=== PATIENT | male | born 1945 | race Caucasian/White ===

== ENCOUNTER 2016-10-13 16:49 | Inpatient (IN) ==
[2016-10-13] MEDS ORDERED: 0.9 % Sodium Chloride 1,000 ML IVC ONE (16:56)
--- NOTE | 2016-10-13 16:57 | Emergency Department Note ---
Disposition Clinical Impression: Atrial flutter with rapid ventricular response Disposition: Admitted As Inpatient Condition: Good Forms: ED Satisfaction Letter Arrhythmia/Palpitations HPI - General Chief Complaint: ED Arrhythmia/Palpitations Stated Complaint: "heart arythmia" from Time Seen by Provider: 10/13/16 16:56 Source: patient Limitations: no limitations Nursing Notes Reviewed: Yes Vital Signs Reviewed: Yes - History of Present Illness Pt Subjective Complaint: rapid heart beat, palpitations Onset (ago): week(s) (2) Duration: intermittent Severity: moderate Context: occurred during rest Associated symptoms: Reports: denies other symptoms - Related Data Home Medications Medication Instructions Recorded Confirmed Diclofenac Sodium 10/13/16 Pantoprazole 10/13/16 Plaquenuil 10/13/16 Testosterone 10/13/16 10/13/16 Allergies Allergy/AdvReac Type Severity Reaction Status Date / Time No Known Allergies Allergy Verified 10/13/16 16:50 All systems ED: reviewed and negative except as stated. Constitutional: Denies: fever, chills, weakness Respiratory: Reports: dyspnea Past Medical History - Past Medical History Source: patient, old records reviewed, nursing notes reviewed Medical history: Reports: arthritis, coronary artery disease, GERD Surgical history: Reports: non-contributory Psychiatric history: Reports: no psych history - Social History Smoking Status: Never smoker Smokeless Tobacco Status: No Alcohol use: Reports: occasionally Drug use: Reports: none Physical Exam - General Limitations: no limitations General appearance: alert, in no apparent distress - Head Head exam: atraumatic, normocephalic, normal inspection - Eye Eye exam: Present: normal appearance, PERRL, EOMI - Expanded Eye Exam Pupils: Left: reactive - ENT ENT exam: normal exam, normal oropharynx, mucous membranes moist - Expanded ENT Exam External ear exam: Present: normal external inspection Mouth exam: Present: normal external inspection Teeth exam: Present: normal inspection Throat exam: Present: normal inspection - Neck Neck exam: Present: normal inspection, full ROM, trachea midline - Chest Chest inspection: Present: normal inspection, symmetric chest wall rise - Respiratory Respiratory exam: Present: normal lung sounds bilaterally - Cardiovascular Cardiovascular exam: Present: tachycardia, irregular rhythm - Abdominal Exam Abdominal exam: Present: soft, Non-Tender. Absent: tenderness, distention, guarding, rebound, rigidity - Extremities Exam Extremities exam: Present: normal inspection, full ROM. Absent: tenderness, pedal edema - Expanded Upper Extremity Exam Shoulder exam: Present: normal inspection, full ROM Arm exam: Present: normal inspection, full ROM Elbow exam: Present: normal inspection, full ROM Forearm/Wrist exam: Present: normal inspection, full ROM Hand exam: Present: normal inspection, full ROM Vascular exam: Normal: capillary refill, radial pulse - Expanded Lower Extremity Exam Hip/Pelvis exam: Present: normal inspection, full ROM Upper leg exam: Present: normal inspection, full ROM Knee exam: Present: normal inspection, full ROM Lower leg exam: Present: normal inspection, full ROM Ankle exam: Present: normal inspection, full ROM Foot/toe exam: Present: normal inspection, full ROM Neurovascular/Tendon exam: Absent: motor deficit, sensory deficit, tendon deficit - Back Exam Back exam: Present: normal inspection, full ROM. Absent: tenderness - Neurological Exam Neurological exam: Present: alert, oriented X3 - Expanded Neurological Exam Patient oriented to: Present: person, place, time Coma Scale Eye Opening: Spontaneous Coma Scale Motor Response: Obeys Commands Coma Scale Verbal Response: Oriented Coma Scale Total: 15 - Psychiatric Psychiatric exam: Present: normal affect, normal mood - Skin Skin exam: Present: warm, dry, intact, normal color, rash (diffuse maculopapular rash) Course Vital Signs Temperature 98.7 F 10/13/16 16:50 Pulse Rate 149 10/13/16 16:50 Respiratory Rate 16 10/13/16 16:50 Blood Pressure 168/109 10/13/16 16:50 O2 Sat by Pulse Oximetry 97 10/13/16 16:50 Temperature 98.7 F 10/13/16 16:50 Pulse Rate 149 10/13/16 16:50 Respiratory Rate 16 10/13/16 16:50 Blood Pressure 168/109 10/13/16 16:50 O2 Sat by Pulse Oximetry 97 10/13/16 16:50 Oxygen Delivery Oxygen Delivery Room Air Arrhythmia/Palpitations - Differential Diagnosis Differential Diagnosis: Likely: palpitations, sinus tachycardia, artial arrhythmia, ventricular premature beats, supraventricular tachycardia, ventricular tachycardia, metabolic/electrolyte disturbance - Medical Records Medical records reviewed: Yes I reviewed the patient's medical records. - Lab Data Lab results reviewed: Yes I reviewed the patient's lab results. Result diagrams: 10/13/16 17:08 10/13/16 17:08 Lab Results 03/10/13/16 10/13/16 Range/Units 17:08 17:08 17:08 WBC 6.5 (4.3-11.1) K/mcL RBC 4.25 (4.19-5.50) M/mcL Hgb 14.0 (12.9-16.9) g/dL Hct 41.0 (37.5-50.1) % MCV 96.5 (83.0-100.0) fL MCH 32.9 (28.0-33.3) pg MCHC 34.1 (31.6-35.5) g/dL RDW 14.0 (11.5-14.5) % Plt Count 184 (140-400) K/mcL MPV 9.2 L (9.4-12.4) fL Immature Gran % 0.3 (0-4) % Seg Neutrophils % 76.6 % Lymphocytes % 8.7 % Monocytes % 7.0 % Eosinophils % 6.9 % Basophils % 0.5 % Neutrophils # 5.0 (1.6-8.9) K/mcL Lymphocytes # 0.6 (0.6-4.6) K/mcL Monocytes # 0.5 (0.0-1.3) K/mcL Eosinophils # 0.5 (0.0-0.6) K/mcL Basophils # 0.0 (0.0-0.2) K/mcL PT 12.3 H (9.4-12.1) Seconds INR 1.1 APTT 27.4 (26.0-36.0) Seconds Sodium 131 L (136-145) mEq/L Potassium 4.2 (3.5-4.5) mEq/L Chloride 96 L (98-109) mEq/L Carbon Dioxide 23 (19-29) mEq/L BUN 13 (8-26) mg/dL Creatinine 0.98 (0.72-1.25) mg/dL Est GFR ( Amer) > 60 (> 60) Est GFR (Non-Af Amer) > 60 (> 60) BUN/Creatinine Ratio 13 (6-26) Glucose 80 (70-99) mg/dL Calculated Osmolality 271 L (280-300) Calcium 9.2 (8.6-10.8) mg/dL Magnesium 1.9 (1.6-2.6) mg/dL Troponin I (0-0.03) ng/mL TSH 1.317 (0.350-4.840) mcIU/mL 10/13/16 Range/Units 17:08 WBC (4.3-11.1) K/mcL RBC (4.19-5.50) M/mcL Hgb (12.9-16.9) g/dL Hct (37.5-50.1) % MCV (83.0-100.0) fL MCH (28.0-33.3) pg MCHC (31.6-35.5) g/dL RDW (11.5-14.5) % Plt Count (140-400) K/mcL MPV (9.4-12.4) fL Immature Gran % (0-4) % Seg Neutrophils % % Lymphocytes % % Monocytes % % Eosinophils % % Basophils % % Neutrophils # (1.6-8.9) K/mcL Lymphocytes # (0.6-4.6) K/mcL Monocytes # (0.0-1.3) K/mcL Eosinophils # (0.0-0.6) K/mcL Basophils # (0.0-0.2) K/mcL PT (9.4-12.1) Seconds INR APTT (26.0-36.0) Seconds Sodium (136-145) mEq/L Potassium (3.5-4.5) mEq/L Chloride (98-109) mEq/L Carbon Dioxide (19-29) mEq/L BUN (8-26) mg/dL Creatinine (0.72-1.25) mg/dL Est GFR ( Amer) (> 60) Est GFR (Non-Af Amer) (> 60) BUN/Creatinine Ratio (6-26) Glucose (70-99) mg/dL Calculated Osmolality (280-300) Calcium (8.6-10.8) mg/dL Magnesium (1.6-2.6) mg/dL Troponin I 0.06 H* (0-0.03) ng/mL TSH (0.350-4.840) mcIU/mL - Radiology Data Radiology results reviewed: Yes I reviewed the patient's radiology results. - EKG Data EKG attestation: Yes I reviewed and interpreted this EKG. Rate: tachycardia (148) Rhythm: A. flutter [place]/QRS: RBBB Interpretation: nonspecific ST-T wave changes Critical Care Time Critical Care Time: Yes Total Critical Care Time: 35 Attestation: The high probability of a clinically significant, sudden or life threatening deterioration of the [] system(s) required my full and direct attention, intervention and personal management. The aggregate critical care time was [] minutes. This time is in addition to time spent performing reported procedures but includes the following: [] Data Review and interpretation [] Patient assessment and monitoring of vital signs [] Documentation [] Medication orders and management
[2016-10-13 17:21] LABS: Basophils % 0.5 %; Eosinophils # 0.5 K/mcL (0.0-0.6); Eosinophils % 6.9 %; Immature Granulocytes % 0.3 % (0-4); Lymphocytes # 0.6 K/mcL (0.6-4.6); Lymphocytes % 8.7 %; Mean Corpuscular HGB Conc 34.1 g/dL (31.6-35.5); Mean Corpuscular Hemoglobin 32.9 pg (28.0-33.3); Mean Corpuscular Volume 96.5 fL (83.0-100.0); Mean Platelet Volume 9.2 fL (9.4-12.4); Monocytes # 0.5 K/mcL (0.0-1.3); Platelet Count 184 K/mcL (140-400); Red Blood Count 4.25 M/mcL (4.19-5.50); Segmented Neutrophils % 76.6 %
[2016-10-13 17:27] LABS: INR 1.1; Prothrombin Time 12.3 Seconds (9.4-12.1)
[2016-10-13 17:29] LABS: Activated Partial Thrombo Time 27.4 Seconds (26.0-36.0)
[2016-10-13 17:33] LABS: BUN/Creatinine Ratio 13 (6-26); Blood Urea Nitrogen 13 mg/dL (8-26); Calcium 9.2 mg/dL (8.6-10.8); Carbon Dioxide 23 mEq/L (19-29); Chloride 96 mEq/L (98-109); Glucose 80 mg/dL (70-99); Magnesium 1.9 mg/dL (1.6-2.6); Osmolality,Calculated 271 (280-300); Potassium 4.2 mEq/L (3.5-4.5); Sodium 131 mEq/L (136-145); eGFR For African Americans > 60 (> 60); eGFR For Non-African Americans > 60 (> 60)
[2016-10-13 17:56] LABS: Thyroid Stimulating Hormone 1.317 mcIU/mL (0.350-4.840)
[2016-10-13] MEDS ORDERED: Aspirin 81 MG TAB.CHEW PO STA (18:12)
[2016-10-13] MEDS ORDERED: *HR* Enoxaparin 80 MG/0.8 ML SYRINGE SQ STA (18:13)
[2016-10-14] MEDS ORDERED: Ondansetron 4 MG/2 ML VIAL IVP PRN (00:53)
[2016-10-14] MEDS ORDERED: *HR* LORazepam 2 MG/ML VIAL IVP PRN ×3 (00:53)
[2016-10-14] MEDS ORDERED: Naloxone 0.4 MG/ML INJ IVP PRN (00:53)
--- NOTE | 2016-10-14 00:53 | Internal Med History&Physical ---
<Tony Islas - Last Filed: 10/14/16 01:07> Date of Encounter: 10/14/16 Time of Encounter: 23:15 Assessment and Plan (1) Atrial flutter with rapid ventricular response Current visit: Yes Status: Acute Patient presents for edema with elevated heart rate and EKG consistent with atrial flutter with rapid ventricular response. Patient is asymptomatic at this time, but continuing to need Cardizem drip to control heart rate. Magnesium, TSH, and potassium all normal Continue Cardizem drip titrated to heart rate between 60 and 90 Therapeutic Lovenox 1 mg/kg twice a day We will obtain additional EKG after improvement patient's heart rate We will obtain additional troponin We will consult cardiology for assistance and continue management/care of patient new-onset arrhythmia Continue to monitor arrhythmia via telemetry Cardiac diet (2) Rash Current visit: Yes Status: Acute Patient has diffuse, pruritic rash that is punctate erythematous lesions. Diffuse erythema appreciated. We will start 25 mg hydroxyzine every 6 hours for patient itching We will consult dermatology planning assistant in continued management/care the patient rash (3) Alcohol abuse Current visit: Yes Status: Acute Patient reports drinking 10-13 beers a day Patient started on Ativan base CIWA protocol We will obtain CMP also help evaluate liver function (4) DVT prophylaxis Current visit: Yes Status: Acute Patient was started on therapeutic Lovenox for new onset atrial arrhythmia Internal Medicine - H&P: HPI Chief complaint: Itchy Rash and high heart rate Admitted From: Home Plans for Post Hospital Care: Home History of present illness: Mr. Marcial is a 71 year old male with prior medical history of arthritis, coronary artery disease, GERD, spinal disc rupture, BPH, chronic pain presents to [facility] from a nearby urgent care due to findings of an elevated heart rate. He had originally presented to the urgent care because he was having significant pruritus associated with whole body rash that he has had for over a month now. It was originally isolated to his lower back, and he had been seen a shipping receiving manager, but after his last appointment shipping receiving manager in August the rash started over his whole body. At the urgent care his found having elevated heart rate in the be in atrial flutter with RVR and was sent to [facility] for further workup and management. EKG showed atrial flutter with ventricular rate of 1:30. He was started on a Cardizem drip in the emergency room anesthesia achieved moderate control of his arrhythmia, pain in the mid 90s on 7.5 mg an hour. When spoken to, the patient complains mainly of these ongoing pruritic rash, but does state these had increased nausea and lightheadedness in the past 2-3 months, he is not having a little shortness of breath, palpitations, and a dry cough for about a month. He denies chest pain, denies vomiting, denies abdominal pain, denies lightheadedness or dizziness, denies syncope. He states he is felt like the palpitations have been occurring off and on for years. Past Med Surg Social Fam HX - Past Medical History Medical history: arthritis, GERD, hyperlipidemia Psychiatric history: no psych history - Past Surgical History Surgical History: non-contributory - Social History Smoking Status: Never smoker Smokeless Tobacco Status: No Alcohol use: occasionally Drug use: none - Family History Brother Hx Family Cardiac Disorders: Yes (pacemaker) Internal Medicine - H&P: Meds Cholecalciferol (D-3) [Vitamin D] 1,000 unit PO DAILY 10/13/16 [History] Diclofenac Sodium 50 mg PO BID 10/13/16 [History] Lutein 10 mg PO DAILY 10/13/16 [History] Pantoprazole 100 mg PO DAILY 10/13/16 [History] Plaquenuil 200 mg PO BID 10/13/16 [History] Testosterone 0.6 mg SQ Q2W 10/13/16 [History] Viagra 10/13/16 [History] Allergies No Known Allergies Allergy (Verified 10/13/16 16:50) - Constitutional Constitutional: no anorexia, no chills, no fatigue, no falls, no weakness - EENT Eyes: no change in vision, no loss of vision Nose, mouth and throat: no dysphagia, no nasal discharge, no neck pain, no sore throat - Cardiovascular Cardiovascular ROS IM: as per HPI, dyspnea, edema, palpitations, no chest pain, no diaphoresis, no lightheadedness, no syncope - Respiratory Respiratory: as per HPI, cough, dyspnea, chest congestion, no hemoptysis, no wheezing, no excessive phlegm production, no change in phlegm color - Gastrointestinal Gastrointestinal: nausea, no abdominal pain, no diarrhea, no hematemesis, no hematochezia, no melena, no vomiting - Genitourinary Genitourinary ROS male: no dysuria, no hematuria - Musculoskeletal Musculoskeletal ROS IM: back pain, no numbness, no tingling - Integumentary Integumentary IM: as per HPI, erythema, pruritus, rash, no unusual bruising, no jaundice - Neurological Neurological ROS: no confusion, no dizziness, no focal weakness, no loss of vision, no numbness, no tingling, no tremor(s), no weakness - Hematologic/Lymphatic Hematologic/Lymphatic: no easy bruising - Constitutional Vitals: Temp Pulse Resp BP Pulse Ox 97.9 F 91 16 123/70 94 L 10/13/16 22:30 10/13/16 22:30 10/13/16 22:30 10/13/16 22:30 10/13/16 22:30 Exam: General: Cooperative, pleasant, no acute distress, alert and oriented 3, answers questions appropriately Head: Normocephalic, atraumatic Eye: Conjunctiva pink, sclera anicteric, EOMI, PERRL Neck: Supple, trachea midline, mucosa moist, no oral lesions appreciated Respiratory: No accessory muscle usage, clear to auscultation bilaterally, no wheezes/rhonchi/rales appreciated Cardiovascular: Irregular rhythm, S1 and S2 present, no murmurs/rubs/gallops/ clicks appreciated GI/abdominal: Nondistended, nontender, soft, normal bowel sounds, no peritoneal signs Extremities: No calf tenderness, noncyanotic, +1 pedal edema appreciated, warm, lower extremity pulses palpable and symmetrical Neurological: Alert and oriented 3, no facial droop, no focal deficits Skin: Dry, intact, erythematous diffusely, many punctate areas of erythema with evidence of excoriations in upper extremities, lower extremities, abdomen, and chest Internal Med - H&P Results - Labs CBC & Chem 7: 10/13/16 17:08 10/13/16 17:08 - EKG Data -: EKG Interpreted by Myself Rate: tachycardia - EKG Data Prior EKG available for review: no - Impressions Atrial flutter with variable ventricular response Right bundle branch block <Thelma Sanchez - Last Filed: 10/14/16 10:37> Date of Encounter: 10/13/16 Internal Medicine - H&P: HPI History of present illness: Mr. Marcial is a 71 year old male All Systems PM: A 10-system review of systems was performed and is negative for pertinent findings except as documented above in the HPI. - Constitutional Vitals: Temp Pulse Resp BP Pulse Ox 97.8 F 76 18 121/67 92 L 10/14/16 07:41 10/14/16 07:41 10/14/16 07:41 10/14/16 07:41 10/14/16 07:41 Internal Med - H&P Results - Labs CBC & Chem 7: 10/14/16 03:11 10/14/16 03:11 - Attending Attestation I performed a history and physical examination of the patient and discussed his management with the Resident/Product Strategy Director. I reviewed the residents note and agree with the documented findings and plan of care, with additions as below. 71 Y/M with skin rash presented to urgent care and was noted to be tachycardic and sent to the ER. Noted to be atrial flutter with RVR. He is started on diltiazem infusion with improving heart rate. At my evaluation patient denied any chest pain or palpitations. He was itchy due to skin rash. O/E: Cardiac irregular rhythm; extensive skin rash with excoriations. Difficult to differentiate the primary rash. EKG personally evaluated by me shows A flutter with RVR. TSH is normal. A/P: Continue diltiazem infusion; echocardiogram; cardiac consultation. Start hydroxyzine for itching. Dermatology consultation.
[2016-10-14] MEDS: Vitamin B Complex/Vit C/Vit E 1 EACH TABLET PO SCH (01:30)
[2016-10-14] MEDS: Folic Acid 1 MG TABLET PO SCH ×2 (01:31→09:30)
[2016-10-14] MEDS: Thiamine (B-1) 100 MG TABLET PO SCH (01:31)
[2016-10-14] MEDS: hydrOXYzine pamoate 25 MG CAPSULE PO PRN ×4 (01:36→17:53)
[2016-10-14 03:19] LABS: Basophils % 0.4 %; Eosinophils # 0.6 K/mcL (0.0-0.6); Eosinophils % 11.8 %; Hematocrit 37.2 % (37.5-50.1); Hemoglobin 12.7 g/dL (12.9-16.9); Immature Granulocytes % 0.2 % (0-4); Lymphocytes # 0.8 K/mcL (0.6-4.6); Lymphocytes % 16.3 %; Mean Corpuscular HGB Conc 34.1 g/dL (31.6-35.5); Mean Corpuscular Volume 96.6 fL (83.0-100.0); Mean Platelet Volume 9.3 fL (9.4-12.4); Monocytes # 0.3 K/mcL (0.0-1.3); Monocytes % 7.1 %; Platelet Count 175 K/mcL (140-400); Red Blood Count 3.85 M/mcL (4.19-5.50); Segmented Neutrophils % 64.2 %
[2016-10-14 03:34] LABS: Alanine Aminotransferase 25 Units/L (0-55); Albumin 3.3 g/dL (3.5-5.0); Albumin/Globulin Ratio 1.4 (1.1-2.2); Alkaline Phosphatase 34 Units/L (38-126); Aspartate Amino Transferase 36 Units/L (5-34); BUN/Creatinine Ratio 13 (6-26); Bilirubin,Total 0.7 mg/dL (0.2-1.2); Blood Urea Nitrogen 11 mg/dL (8-26); Calcium 8.6 mg/dL (8.6-10.8); Carbon Dioxide 22 mEq/L (19-29); Chloride 101 mEq/L (98-109); Globulin 2.4 g/dL (2.4-3.5); Glucose 89 mg/dL (70-99); Magnesium 1.7 mg/dL (1.6-2.6); Osmolality,Calculated 275 (280-300); Phosphorous 3.7 mg/dL (2.3-4.7); Potassium 4.3 mEq/L (3.5-4.5); Sodium 133 mEq/L (136-145); Total Protein 5.7 g/dL (6.0-8.3); eGFR For African Americans > 60 (> 60); eGFR For Non-African Americans > 60 (> 60)
[2016-10-14] MEDS: *HR* Enoxaparin 80 MG/0.8 ML SYRINGE SQ SCH ×2 (05:49→17:51)
[2016-10-14] MEDS: Pantoprazole 40 MG VIAL IVP SCH (05:49)
[2016-10-14] MEDS: Diltiazem CD (24hr) 180 MG CAPSULE PO SCH (09:30)
--- NOTE | 2016-10-14 10:30 | Cardiology Consult Note ---
Date of Encounter: 10/14/16 Time of Encounter: 10:28 Assessment and Plan (1) Atrial flutter with rapid ventricular response Current Visit: Yes Status: Acute New diagnosis. Reports ongoing palpitations over the past month, intermittently for years. A-Flutter with RVR on presentation. Admits to dyspnea and lower extremity edema. Rate controlled on IV Cardizem gtt at 7.5mg/hr--transition to PO Cardizem CD 180mg daily. K 4.3, Mag 1.7, TSH 1.317. CHADSVASC at least 1 for age, possibly a 2 or 3 due to reported white coat HTN and being on Plaquenuil for possible vascular disease. Recommend anticoagulation. Discussed Coumadin vs. NOACs. Pt prefers Coumadin--[facility] pt, so will [facility] up with [facility]. Start Coumadin tonight with dosing per pharmacy. On Therapeutic Lovenox. Check echo to evaluate structure and function. Drinks 12-13 beers/day. Discussed cessation. Discussed MEHRDAD/DCCV to attempt to get pt out of A-Flutter and back in SR. R/B/A discussed and pt agrees. Proceed with MEHRDAD/DCCV tomorrow AM. If unsuccessful, can be anticoagulated for 4 weeks and set up for outpt A-Flutter ablation. (2) Alcohol abuse Current Visit: Yes Status: Acute Patient reports drinking 10-13 beers a day. Cessation counseling given. Hospitalist started pt on Ativan base CIWA protocol. (3) Elevated troponin Current Visit: Yes Status: Acute 0.06, 0.07 in setting of A-Flutter with RVR--likely demand ischemia, nondiagnostic for ACS. Pt denies chest pain. No hx of CAD. Echo to evaluate structure and function. Discussion w patient/family: The assessment and plan as outlined above was discussed with the patient and/or family members who expressed understanding and agreement. All questions were answered. Thank you for involving us in the care of your patient. Please call with any questions. I will discuss all the above with Dr. Sidhu and make changes as necessary. History of Present Illness Consult date: 10/14/16 Requesting physician: Tony Islas Consult reason: A-Flutter Chief complaint: rash History of present illness: Mr. Marcial is a 71 year old male with PMH of arthritis, GERD, spinal disc rupture , BPH, chronic pain presents to [facility] from a nearby urgent care due to findings of an elevated heart rate. He had originally presented to the urgent care because he was having significant pruritus associated with whole body rash that he has had for over a month now. It was originally isolated to his lower back, and he had been seen a justice of the peace, but after his last appointment justice of the peace in August the rash started over his whole body. At the urgent care he was found to be in atrial flutter with RVR and was sent to [facility] for further workup and management. EKG showed atrial flutter, rate 140s. He was started on a Cardizem drip in the ED--rate currently controlled on cardizem gtt 7.5mg/hr. Pt reports intermittent palpitations for years but reports current episode of palpitations ongoing for one month with lower extremity edema and dyspnea ongoing for longer. He denies chest pain, denies any known hx of CAD or LHC. Admits to drinking 10-13 beers/day. Troponins 0.06, 0.07. Past Med Surg Social Fam HX - Past Medical History Medical history: arthritis, GERD, hyperlipidemia Psychiatric history: no psych history - Past Surgical History Surgical History: non-contributory - Social History Smoking Status: Never smoker Smokeless Tobacco Status: No Alcohol use: occasionally Drug use: none - Family History Brother Hx Family Cardiac Disorders: Yes (pacemaker) Medications and Allergies Cholecalciferol (D-3) [Vitamin D] 1,000 unit PO DAILY 10/13/16 [History] Diclofenac Sodium 50 mg PO BID 10/13/16 [History] Lutein 10 mg PO DAILY 10/13/16 [History] Pantoprazole 100 mg PO DAILY 10/13/16 [History] Plaquenuil 200 mg PO BID 10/13/16 [History] Testosterone 0.6 mg SQ Q2W 10/13/16 [History] Viagra 10/13/16 [History] Allergies No Known Allergies Allergy (Verified 10/13/16 16:50) All Systems Review: A 10-system review of systems was performed and is negative for pertinent findings except as documented above in the HPI. - Cardiovascular Cardiovascular: as per HPI, dyspnea at rest, dyspnea on exertion, leg edema, palpitations - Respiratory Respiratory: cough, dyspnea - Integumentary Integumentary: rash Physical Examination Vital Signs, Last 4 Hours Temp Pulse Resp BP Pulse Ox 10/14/16 07:41 97.8 F 76 18 121/67 92 L Vital Signs Temp Pulse Resp BP Pulse Ox 10/14/16 07:41 97.8 F 76 18 121/67 92 L 10/14/16 03:29 97.8 F 93 16 120/71 94 L 10/13/16 22:30 97.9 F 91 16 123/70 94 L 10/13/16 22:10 130 108/67 10/13/16 20:10 97.8 F 127 16 134/79 92 L 10/13/16 19:49 98.6 F 18 116/82 10/13/16 19:37 123 18 115/80 98 10/13/16 18:30 98 16 126/75 97 10/13/16 18:00 77 16 126/75 97 10/13/16 17:30 93 16 133/81 98 10/13/16 16:50 98.7 F 149 16 168/109 97 Intake and Output 10/13/16 10/14/16 10/14/16 23:59 07:59 15:59 Intake Total 480 / 480 Balance 480 / 480 Intake: Oral 480 / 480 Other: Meal Breakfast Percent of Meal Consumed 100% Weight 83.96 kg 83.642 kg Patient Weight 10/14/16 23:59 Weight 83.642 kg General: Conversant, No Apparent Distress HEENT: Atraumatic, Normocephaly, Mucus Membranes Moist Neck: No JVD, Normal carotid pulses Cardiac: Other (irregular) Lungs: Normal Breath Sounds, No Wheeze, Rales, Rhonchi Neuro: Alert and responsive, No focal deficits noted Abdomen: Soft, Non-Tender Skin: No rashes noted on visualized skin Musculoskeletal: No Chest Wall Tenderness Extremities: Other (mild BLE edema) Results 10/14/16 03:11 10/14/16 03:11 Short CBC 10/14/16 10/13/16 Range/Units 03:11 17:08 WBC 4.7 6.5 (4.3-11.1) K/mcL Hgb 12.7 L 14.0 (12.9-16.9) g/dL Hct 37.2 L 41.0 (37.5-50.1) % Plt Count 175 184 (140-400) K/mcL Neutrophils # 3.0 5.0 (1.6-8.9) K/mcL BMP 10/14/16 10/13/16 Range/Units 03:11 17:08 Sodium 133 L 131 L (136-145) mEq/L Potassium 4.3 4.2 (3.5-4.5) mEq/L Chloride 101 96 L (98-109) mEq/L Carbon Dioxide 22 23 (19-29) mEq/L BUN 11 13 (8-26) mg/dL Creatinine 0.88 0.98 (0.72-1.25) mg/dL Glucose 89 80 (70-99) mg/dL Calcium 8.6 9.2 (8.6-10.8) mg/dL Cardiac Enzymes 10/14/16 10/13/16 Range/Units 03:11 17:08 Troponin I 0.07 H* 0.06 H* (0-0.03) ng/mL Liver Function 10/14/16 Range/Units 03:11 Total Bilirubin 0.7 (0.2-1.2) mg/dL AST 36 H (5-34) Units/L ALT 25 (0-55) Units/L Alkaline Phosphatase 34 L (38-126) Units/L Albumin 3.3 L (3.5-5.0) g/dL Impressions Chest X-Ray 10/13/16 16:56 IMPRESSION: No acute cardiopulmonary disease. D/ / Ryan Silva MD / Ryan Silva MD Interpreting Provider: Ryan Silva MD Active Medications Diclofenac Sodium (Voltaren) 50 mg PO BID [facility] Stop: 04/15/17 01:16 Last Admin: 10/14/16 09:30 Dose: 50 mg Diltiazem HCl (Cardizem Cd) 180 mg PO DAILY [facility] Stop: 04/15/17 09:01 Last Admin: 10/14/16 09:30 Dose: 180 mg Enoxaparin Sodium (Lovenox) 80 mg 1 mg/kg (80 mg) SQ Q12HCO [facility] PRN Reason: Protocol Stop: 04/15/17 06:01 Last Admin: 10/14/16 05:49 Dose: Not Given Folic Acid (Folic Acid) 1 mg PO DAILY [facility] Stop: 04/15/17 01:01 Last Admin: 10/14/16 09:30 Dose: 1 mg Hydroxychloroquine Sulfate (Plaquenuil) 200 mg PO BID [facility] Stop: 04/15/17 01:16 Last Admin: 10/14/16 09:30 Dose: 200 mg Hydroxyzine Pamoate (Hydroxyzine Pamoate) 25 mg PO QID PRN PRN Reason: Itching Stop: 04/15/17 01:05 Last Admin: 10/14/16 05:51 Dose: 25 mg Lorazepam (Ativan) 1 mg IVP Q1H PRN PRN Reason: Alcohol Withdrawal Stop: 04/15/17 00:54 Lorazepam (Ativan) 2 mg IVP Q4HR PRN PRN Reason: CIWA Score of 10-21 Stop: 04/15/17 00:54 Lorazepam (Ativan) 4 mg IVP Q4HR PRN PRN Reason: CIWA Score of 22-45 Stop: 04/15/17 00:54 Naloxone HCl (Narcan) 0.4 mg IVP Q2MIN PRN PRN Reason: Opioid Reversal Stop: 04/15/17 00:54 Ondansetron HCl (Zofran) 4 mg IVP Q8HR PRN PRN Reason: Nausea And Vomiting Stop: 04/15/17 00:54 Pantoprazole Sodium (Protonix) 40 mg IVP 0630 [facility] Stop: 04/15/17 06:31 Last Admin: 10/14/16 05:49 Dose: 40 mg Thiamine HCl (Vitamin B-1) 100 mg PO DAILY [facility] Stop: 04/15/17 01:01 Last Admin: 10/14/16 01:31 Dose: 100 mg Vitamin B Complex/Vit C/Vit E (Stresstab) 1 each PO DAILY [facility] Stop: 04/15/17 01:01 Last Admin: 10/14/16 01:30 Dose: 1 each - Imaging and Cardiology Echo: pending - EKG Interpretation EKG results cardiology: personally reviewed (A-Flutter with RVR.), other (24 hour tele AVG HR 89, A-Flutter) Consult Discharge Plan - Plan Referrals: Simeon Zambrano MD [Primary Care Provider] -
--- NOTE | 2016-10-14 15:10 | ECHO - Doppler Report ---
Echocardiogram Name: Blaze Marcial Date of Study: 10/14/2016 Date: 1945 Ht: 68.0 in Medical Record#: [id number] Age: 71 Wt: 184.0 lb Gender: Male BSA: 1.97 Order #: [id number] Location: [facility] Room #: 3B53 Reading Physician: Louie Sidhu MD, [facility] Printer Assistant: Mary Patterson RVT Ordering Physician: Tony Islas DO Primary Physician: Simeon Zambrano MD Indications: new onset atrial flutter Impressions: Normal LV systolic function, LVEF 55%. Indeterminate diastolic function due to atrial flutter. Normal right ventricular size and function. Moderately dilated left atrium. Mildly dilated right atrium. Mild tricuspid regurgitation. Mild pulmonary hypertension. Estimated RVSP = 37 mmHg. Borderline dilated aortic root, measuring 4.0 cm at the sinuses of Valsalva. Left Ventricular Wall Motion: Rest Echo Findings All wall segments showed normal motion. Findings: Study Quality * Suboptimal echo windows. ECG Findings * Atrial flutter. Left Ventricle * Normal LV systolic function, LVEF 55%. * Normal LV chamber size and wall thickness. * Indeterminate diastolic function due to atrial flutter. Right Ventricle * Normal right ventricular size and function. Left Atrium * Moderately dilated left atrium. Right Atrium * Mildly dilated right atrium. Aorta * Borderline dilated aortic root, measuring 4.0 cm at the sinuses of Valsalva. Pericardium * There is no pericardial effusion present. IVC * The IVC is dilated. Aortic Valve * Trileaflet aortic valve. * Mildly sclerotic aortic valve leaflets. * No aortic stenosis. * No aortic regurgitation. Mitral Valve * Mild mitral annular calcification * No mitral stenosis. * Trace mitral regurgitation. Tricuspid Valve * Tricuspid valve not well visualized. * No tricuspid stenosis. * Mild tricuspid regurgitation. * Mild pulmonary hypertension. Estimated RVSP = 37 mmHg. Pulmonic Valve * Pulmonic valve not well visualized. * No pulmonic stenosis. * No pulmonic regurgitation. History Family History of CAD Measurements: BP: 120/ 71 2D Normal Values RVIDd: 3.22 cm IVSd: .96 cm 0.6 - 1.0 cm LVIDd: 5.18 cm 3.7 - 5.6 cm LVPWd: .92 cm 0.6 - 1.1 cm LVIDs: 3.51 cm 1.5 - 3.6 cm AO: 4.00 cm < 4.0 cm %FS: 32.20 cm >25 % LA volume: 78 Tricuspid Valve TV Regurg Peak Grad: 29.00mmHg TV Regurg Peak Edy: 2.70m/sec Updated by Louie Sidhu MD, [facility] on 10/14/2016 3:03:56 PM electronically signed on 10/14/2016 3:04:34 PM with status of Final Wall Motion Wells: 1=Normal, 2=Hypokinesis, 3=Akinesis, 4=Dyskinesis, 5=Aneurysmal, 6=Hyperkinetic, X=Not Visualized (Blank)=Missing
[2016-10-14] MEDS ORDERED: Warfarin perPT PO PRN (18:00)
[2016-10-14] MEDS ORDERED: *HR* Warfarin 2.5 MG TABLET PO SCH (18:00)
[2016-10-15 05:03] LABS: Basophils % 0.5 %; Eosinophils # 0.5 K/mcL (0.0-0.6); Eosinophils % 11.6 %; Hematocrit 36.5 % (37.5-50.1); Hemoglobin 12.5 g/dL (12.9-16.9); Immature Granulocytes % 0.2 % (0-4); Lymphocytes # 0.7 K/mcL (0.6-4.6); Lymphocytes % 16.7 %; Mean Corpuscular HGB Conc 34.2 g/dL (31.6-35.5); Mean Corpuscular Hemoglobin 33.8 pg (28.0-33.3); Mean Corpuscular Volume 98.6 fL (83.0-100.0); Mean Platelet Volume 9.9 fL (9.4-12.4); Monocytes # 0.3 K/mcL (0.0-1.3); Monocytes % 6.3 %; Neutrophils # 2.8 K/mcL (1.6-8.9); Platelet Count 166 K/mcL (140-400); Red Cell Distribution Width 14.3 % (11.5-14.5); Segmented Neutrophils % 64.7 %
[2016-10-15 05:13] LABS: INR 1.2; Prothrombin Time 12.6 Seconds (9.4-12.1)
[2016-10-15 05:24] LABS: BUN/Creatinine Ratio 16 (6-26); Blood Urea Nitrogen 14 mg/dL (8-26); Carbon Dioxide 24 mEq/L (19-29); Chloride 103 mEq/L (98-109); Potassium 4.1 mEq/L (3.5-4.5); Sodium 135 mEq/L (136-145)
[2016-10-15 05:25] LABS: Calcium 8.4 mg/dL (8.6-10.8); Glucose 107 mg/dL (70-99); Osmolality,Calculated 281 (280-300); eGFR For African Americans > 60 (> 60); eGFR For Non-African Americans > 60 (> 60)
[2016-10-15] MEDS: hydrOXYzine pamoate 25 MG CAPSULE PO PRN ×3 (06:15→21:15)
[2016-10-15] MEDS: *HR* Enoxaparin 80 MG/0.8 ML SYRINGE SQ SCH ×2 (06:15→18:00)
[2016-10-15] MEDS: Pantoprazole 40 MG VIAL IVP SCH (06:15)
--- NOTE | 2016-10-15 06:42 | Electrocardiograph Report ---
[address] [address] Test Date: 2016-10-13 Pat Name: Blaze Marcial Department: 104 Room: 3B Gender: Campus Coordinator: MIO : 1945 Requested By: Marco Antonio Retana Order Number: [id number] Reading MD: Louie Sidhu MD Measurements Intervals [place] Rate: 106 P: [place]: 0 QRS: 53 QRSD: 173 T: 40 QT: 354 QTc: 416 Interpretive Statements ATRIAL FLUTTER/TACHYCARDIA WITH RAPID VENTRICULAR RESPONSE RIGHT BUNDLE BRANCH BLOCK NONSPECIFIC ST \T\ T WAVE ABNORMALITY Electronically Signed On 10-15-2016 6:41:08 EDT by Louie Sidhu MD
--- NOTE | 2016-10-15 07:00 | Electrocardiograph Report ---
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
--- NOTE | 2016-10-15 07:05 | Electrocardiograph Report ---
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
--- NOTE | 2016-10-15 07:18 | Electrocardiograph Report ---
[employer] [facility] Test Date: 2016-10-13 Pat Name: Blaze Marcial Department: 3501 Room: 3B53 Gender: M Business Consult: TS : 1945 Requested By: Marco Antonio Retana Order Number: [id number] Reading MD: Lexy Sol DO Measurements Intervals [place] Rate: 148 P: [place]: 0 QRS: 259 QRSD: 150 T: -7 QT: 282 QTc: 367 Interpretive Statements ATRIAL FLUTTER/TACHYCARDIA WITH RAPID VENTRICULAR RESPONSE INDETERMINATE AXIS RIGHT BUNDLE BRANCH BLOCK Electronically Signed On 10-15-2016 7:17:00 EDT by Lexy Slo DO
[2016-10-15] MEDS: Thiamine (B-1) 100 MG TABLET PO SCH (09:37)
[2016-10-15] MEDS: Vitamin B Complex/Vit C/Vit E 1 EACH TABLET PO SCH (09:37)
[2016-10-15] MEDS: Diltiazem CD (24hr) 180 MG CAPSULE PO SCH (09:37)
[2016-10-15] MEDS: Folic Acid 1 MG TABLET PO SCH (09:37)
[2016-10-15] MEDS ORDERED: 0.9 % Sodium Chloride 500 ML IVC ONE ×2 (12:59→14:33)
[2016-10-15] MEDS ORDERED: Tetracaine/Benzocaine/Butamben 200MG/SPRAY (100SPY/BOT) MM ONE (12:59)
[2016-10-15] MEDS: *HR* FentaNYL (PF) 100 MCG/2 ML VIAL IVP PRN ×2 (14:05→14:10)
[2016-10-15] MEDS: *HR* Midazolam HCl 5 MG/5 ML VIAL IVP PRN ×2 (14:05→14:10)
--- NOTE | 2016-10-15 15:03 | Event Note ---
Date of Encounter: 10/15/16 Time of Encounter: 15:01 - Cardiology Event Note Plan was for MEHRDAD/DCCV today. MEHRDAD completed---there was an echodensity at the apex of appendage. Could not rule out thrombus. Due to this, DCCV was not completed. Pt remains in A-Flutter, rate controlled on PO Cardizem. Continue Coumadin for anticoagulation--needs bridging for possible left atrial thrombus. Continue therapeutic Lovenox. Can be discharged with therapeutic Lovenox and Coumadin. [facility]Cass[facility] Jacinto, who states they will try to get him in for INR check within the week. She recommends dose of 2.5mg of Coumadin daily at discharge. Will coordinate outpt follow-up with Dr. Venkatesh Alas in 3-4 weeks. Will also need repeat outpt MEHRDAD. Echo EF 55%. Cardiology signing off. Reconsult PRN.
[2016-10-15] MEDS ORDERED: *HR* Warfarin 5 MG TABLET PO ONE (18:00)
--- NOTE | 2016-10-15 18:10 | Internal Med Progress Note ---
Date of Encounter: 10/15/16 Time of Encounter: 22:04 - Assessment and plan (1) Atrial flutter with rapid ventricular response Current Visit: Yes Status: Acute (2) DVT prophylaxis Current Visit: Yes Status: Acute (3) Alcohol abuse Current Visit: Yes Status: Acute (4) Rash Current Visit: Yes Status: Acute (5) Elevated troponin Current Visit: Yes Status: Acute Assessment and plan: 71 year old male with prior medical history of arthritis, coronary artery disease, GERD, spinal disc rupture, BPH, chronic pain admitted to thospital with palpitaton, daignosed to be in Afib with RVR Afib with RVR: currently rate controlled. MEHRDAD today concerning for atrial appendage thrombus. On anticoagulation with coumadin. Bridging with Lovenox. Rash: Multiple rash on body with excoriation amrks all over. No mucosal lesions. On hydroxyzine for itching and sterodi topical cream Alcohol abuse: On CIWA protocol DVT Prophylaxis: On Lovenox and coumadin - Time Spent With Patient 25 - 35 minutes - Subjective Interval history: seen and examined at bedside. Continues to have itching, better with benadryl. Plan for MEHRDAD with cardioversion today. - Constitutional Vitals: Temp Pulse Resp BP Pulse Ox 97.6 F 96 16 157/83 99 10/15/16 15:34 10/15/16 15:34 10/15/16 15:34 10/15/16 15:34 10/15/16 15:34 - Head Head exam: Present: atraumatic, normocephalic - Eye Eye exam: Present: PERRL, conjuntiva pink, sclera anicteric Pupils: Present: PERRL - Neck Neck exam general surgery: Present: supple, trachea midline. Absent: lymphadenopathy - Respiratory Respiratory exam: Present: CTAB. Absent: accessory muscle use, rales, rhonchi, wheezes - Cardiovascular Cardiovascular exam: Present: RRR, +S1, +S2. Absent: diastolic murmur, gallop, rubs, systolic murmur - GI/Abdominal GI/Abdominal exam: Present: normal bowel sounds, soft, no peritoneal signs. Absent: distended, tenderness - Extremities Exam Extremities exam: Present: warm, radial pulses palpable and symetrical. Absent : calf tenderness, cyanotic, pedal edema - Neurological Exam Neurological exam: Present: CN II-XII intact, oriented X3, no focal deficits. Absent: pronater drift, facial droop, speech deficit - Skin Skin exam: Present: dry, intact, rash (excoriated gibbs all over the body ) Internal Medicine: Result - Labs CBC & Chem 7: 10/15/16 04:19 10/15/16 04:19 Labs: Short CBC 10/15/16 Range/Units 04:19 WBC 4.3 (4.3-11.1) K/mcL Hgb 12.5 L (12.9-16.9) g/dL Hct 36.5 L (37.5-50.1) % Plt Count 166 (140-400) K/mcL Neutrophils # 2.8 (1.6-8.9) K/mcL BMP 10/15/16 04:19 Sodium 135 L Potassium 4.1 Chloride 103 Carbon Dioxide 24 BUN 14 Creatinine 0.86 Glucose 107 H Calcium 8.4 L - ABG Interpretation ABG results: PT/INR, D-dimer PT 12.6 Seconds (9.4-12.1) H 10/15/16 04:19 Consult Discharge Plan - Plan Referrals: Simeon Zambrano MD [Primary Care Provider] - 10/22/16 1:00 pm
--- NOTE | 2016-10-15 18:13 | ECHO - Doppler Report ---
Transesophageal Echocardiogram Name: Blaze Marcial Date of Study: 10/15/2016 Date: 1945 Ht: 68.0in Medical Record#: [id number] Age: 71 Wt: 189.0lb Gender: Male BSA: 2 Order #: [id number] Location: [facility] Room #: [facility] Reading Physician: Daphne Saldivar DO Insole Rounder: Cassandra Allen RDCS, RVT Ordering Physician: Horacio Cline CNP Primary Physician: Simeon Zambrano MD Indications: Arrhythmia Impressions: Technically challenging with suboptimal windows. There is a small echodensity visualized in the ELODIA that may represent thrombus. DCCV was not performed. Medication Given: Time Medication Dose Units Route 14:05 Versed 2 mg IV 14:05 Fentanyl 25 mcg IV 14:10 Versed 1 mg IV 14:10 Fentanyl 25 mcg IV Findings: Study Quality * Technically sub-optimal due to poor window. ECG Findings * Atrial fibrillation. Left Atrium * No thrombus present. * The LA appendage is not well visualized but there is a small echodensity that may represent thrombus. Color flow Doppler was suboptimal. * Normal velocities of the ELODIA. Complications: Arrhythmia History: Hypercholesteremia Years 36 Packs 3.5 Family History of CAD Previous Echo10/14/2016 BP 144 / 77 Updated by Daphne Saldivar on 10/15/2016 6:06:07 PM electronically signed on 10/15/2016 6:08:43 PM with status of Final Wall Motion Wells: 1=Normal, 2=Hypokinesis, 3=Akinesis, 4=Dyskinesis, 5=Aneurysmal, 6=Hyperkinetic, X=Not Visualized (Blank)=Missing
[2016-10-16] MEDS: hydrOXYzine pamoate 25 MG CAPSULE PO PRN ×2 (04:08→08:53)
[2016-10-16 04:51] LABS: Basophils % 0.4 %; Eosinophils # 0.7 K/mcL (0.0-0.6); Eosinophils % 13.9 %; Hematocrit 39.7 % (37.5-50.1); Hemoglobin 13.3 g/dL (12.9-16.9); Immature Granulocytes % 0.2 % (0-4); Lymphocytes # 0.9 K/mcL (0.6-4.6); Lymphocytes % 18.6 %; Mean Corpuscular HGB Conc 33.5 g/dL (31.6-35.5); Mean Corpuscular Hemoglobin 33.5 pg (28.0-33.3); Mean Platelet Volume 9.8 fL (9.4-12.4); Monocytes # 0.3 K/mcL (0.0-1.3); Monocytes % 6.5 %; Platelet Count 170 K/mcL (140-400); Red Blood Count 3.97 M/mcL (4.19-5.50); Red Cell Distribution Width 14.2 % (11.5-14.5); Segmented Neutrophils % 60.4 %
[2016-10-16 04:54] LABS: INR 1.1
[2016-10-16 05:15] LABS: BUN/Creatinine Ratio 10 (6-26); Blood Urea Nitrogen 9 mg/dL (8-26); Calcium 8.6 mg/dL (8.6-10.8); Carbon Dioxide 26 mEq/L (19-29); Chloride 105 mEq/L (98-109); Glucose 94 mg/dL (70-99); Osmolality,Calculated 284 (280-300); Potassium 4.7 mEq/L (3.5-4.5); Sodium 138 mEq/L (136-145); eGFR For African Americans > 60 (> 60); eGFR For Non-African Americans > 60 (> 60)
[2016-10-16] MEDS: *HR* Enoxaparin 80 MG/0.8 ML SYRINGE SQ SCH (05:42)
[2016-10-16] MEDS: Pantoprazole 40 MG VIAL IVP SCH (05:42)
[2016-10-16 07:44] VITALS: BP 136/77
--- NOTE | 2016-10-16 07:56 | Discharge Summary ---
Date of Encounter: 10/16/16 Time of Encounter: 17:55 - Discharge Diagnosis (1) Atrial flutter with rapid ventricular response Priority: Primary Status: Acute (2) DVT prophylaxis Priority: Secondary Status: Acute (3) Alcohol abuse Priority: Secondary Status: Acute (4) Rash Priority: Secondary Status: Acute (5) Elevated troponin Priority: Secondary Status: Acute - Discharge Medications Prescriptions: Enoxaparin [Lovenox] 80 mg SQ Q12HCO #7 syringe Diltiazem CD (24hr) [Cardizem CD] 180 mg PO DAILY #30 cap.er.24h HydrOXYzine Pamoate 25 mg PO QID PRN #20 capsule PRN Reason: Itching Warfarin perPT [Coumadin perPT] 2.5 each PO DAILY@1800 PRN 14 Days PRN Reason: See Comments Home Medications: Cholecalciferol (D-3) [Vitamin D] 1,000 unit PO DAILY 10/13/16 [History] Hydroxychloroquine [Plaquenuil] 200 mg PO BID 10/13/16 [History] Lutein 10 mg PO DAILY 10/13/16 [History] Pantoprazole Sodium [Protonix] 40 mg PO DAILY 10/13/16 [History] Testosterone Cypionate [Depo-Testosterone] 0.6 ml IM Q2W 10/13/16 [History] Fluticasone Propionate Nasal [Flonase] 50 mcg NS BID 10/14/16 [History] Diltiazem CD (24hr) [Cardizem CD] 180 mg PO DAILY #30 cap.er.24h 10/16/16 [Rx] Enoxaparin [Lovenox] 80 mg SQ Q12HCO #7 syringe 10/16/16 [Rx] HydrOXYzine Pamoate 25 mg PO QID PRN #20 capsule 10/16/16 [Rx] Warfarin perPT [Coumadin perPT] 2.5 each PO DAILY@1800 PRN 14 Days 10/16/16 [Rx] Allergies/Adverse Reactions: Allergies No Known Allergies Allergy (Verified 10/13/16 16:50) Procedures/tests Complete & Pending: Procedures Performed prior 72 hours Category Date Time Status EKG [ECG 12 lead ECG] [ECG] Routine Y 10/14/16 15:24 Completed EV MEHRDAD transesophageal echo Routine Y 10/15/16 08:00 Completed Date of admission: 10/14/16 04:38 Primary care physician: Simeon Zambrano MD - Patient Status Disposition: Home, Self-Care Condition: Good Overall status at discharge: patient is progressing back to baseline - Discharge Instructions Instructions: Warfarin (By mouth), Enoxaparin (Injection), Atrial Flutter (DC) Follow Up With: Coumadin, Clinic [Other] - 10/18/16 1:00 pm (First appointment will be 45 minutes Bring coumadin bottle and list of other meds. Right across the hospital) Venkatesh Alas MD [Partnered Physician] - 11/16/16 2:15 pm Simeon Zambrano MD [Primary Care Provider] - 10/22/16 1:00 pm - Diet and Activity Activity: increase activity as tolerated Diet: diabetic diet, low fat, low cholesterol Interval History: 71 year old male with prior medical history of arthritis, coronary artery disease, GERD, spinal disc rupture, BPH, chronic pain admitted to thospital with palpitaton, daignosed to be in Afib with RVR . echo done on admission concerning for atrial appendage thrombus. He was started On anticoagulation with coumadin. Bridging with Lovenox till INR therapeutic Paient is cheduled for follow up with coumadin clinic in one to two days to monitor INR. He is saretd on cardizem PO for rate control as per cardiology. Multiple rash on body with excoriation amrks all over. No mucosal lesions. On hydroxyzine for itching and sterodi topical cream. 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 Patient clincially better and is d.c home He is recommended to f/u with cardiology adn dermatology in 1 week. Hospital course: Mr. Marcial is a 71 year old male - Time Spent with Patient Total time spent providing and/or coordinating discharge services: Greater than 30 minutes - Constitutional Vitals: Temp Pulse Resp BP Pulse Ox 97.4 F L 85 16 136/77 94 L 10/16/16 07:39 10/16/16 07:39 10/16/16 07:39 10/16/16 07:39 10/16/16 07:39 - Head Head exam: Present: atraumatic, normocephalic - Eye Eye exam: Present: PERRL, conjuntiva pink, sclera anicteric Pupils: Present: PERRL - Neck Neck exam general surgery: Present: supple, trachea midline. Absent: lymphadenopathy - Respiratory Respiratory exam: Present: CTAB. Absent: accessory muscle use, rales, rhonchi, wheezes - Cardiovascular Cardiovascular exam: Present: RRR, +S1, +S2. Absent: diastolic murmur, gallop, rubs, systolic murmur - GI/Abdominal GI/Abdominal exam: Present: normal bowel sounds, soft, no peritoneal signs. Absent: distended, tenderness - Extremities Exam Extremities exam: Present: warm, radial pulses palpable and symetrical. Absent : calf tenderness, cyanotic, pedal edema - Neurological Exam Neurological exam: Present: CN II-XII intact, oriented X3, no focal deficits. Absent: pronater drift, facial droop, speech deficit - Skin Skin exam: Present: dry, erythema, intact, rash (excoriations all over)
[2016-10-16] MEDS: Diltiazem CD (24hr) 180 MG CAPSULE PO SCH (08:46)
[2016-10-16] MEDS: Thiamine (B-1) 100 MG TABLET PO SCH (08:47)
[2016-10-16] MEDS: Vitamin B Complex/Vit C/Vit E 1 EACH TABLET PO SCH (08:47)
[2016-10-16] MEDS: Folic Acid 1 MG TABLET PO SCH (08:47)
== END 2016-10-16 13:12 | disposition home or self-care (01) | DRG 309 ==
LOC: EMEROO 16:49 → 3BNU 16:49
PROVIDERS: ADMIT Nurse Practitioner Family; ATTEND Nurse Practitioner Family